=== PATIENT | female | born 1960 | race Caucasian/White ===

== ENCOUNTER 2018-04-21 09:42 | Emergency (ER) | payer BC ==
[~2018-04-21] VITALS: Ht 170.2 cm; Wt 61.2 kg
[2018-04-21 09:42] VITALS: BP_SYST 101
[2018-04-21] MEDS ORDERED: KETOROLAC TROMETHAMINE 60 MG/2 ML VIAL IM ONE (10:15)
[2018-04-21] MEDS ORDERED: DEXAMETHASONE SOD PHOSPHATE 10 MG/ML VIAL IM ONE (10:15)
[2018-04-21 10:20] VITALS: BP_SYST 112
== END 2018-04-21 10:20 | disposition home or self-care (01) ==
LOC: SED 09:42
DX: J02.8 Acute pharyngitis due to other specified organisms (principal); B97.89 Other viral agents as the cause of diseases classified elsewhere
CPT/HCPCS: 96372; 99284; J1100; J1885